=== PATIENT | female | born 1970 | race Caucasian/White ===

== ENCOUNTER 2024-02-07 12:23 | Observation (INO) | payer OTHER, SELFPAY ==
[2024-02-07] VITALS (8 sets, daily range): BP systolic 107–147; BP diastolic 86–92; PULSE 76–87; RESP 14–20; TEMP 36.4–36.7; O2SAT 94–98
--- NOTE | ~2024-02-07 | XR_ITS ---
EXAMINATION: XR chest 1V portable DATE: 02/07/2024 15:26 INDICATION: PICC line placement TECHNIQUE: BULGARIAN AP and BULGARIAN images of the chest were obtained. COMPARISON: None FINDINGS: Left upper extremity peripherally inserted central venous catheter (PICC) tip at the high right atri um. Linear band of discoid atelectasis/scarring in the lateral right midlung zone. Minimal discoid atelec tasis at the left costophrenic angle. No other airspace opacities, pulmonary edema, pleural effusion or pneumothorax. Thin branching embolized methyl methacrylate scattered within a few bronchi in lungs with right-sided perihilar predominance. This arises from a vertebroplasty, likely at L1 with associ ated methylmethacrylate extending along the adjacent right paraspinal vein. Associated instrumented p osterior spinal fusion with bilateral vertical arcenio and pedicle screw fixations beginning the midthora cic spine extending into the lumbar spine and beyond the inferior margin of the [id number]. There is also a likely corpectomy with interbody device at the lower thoracic spine. Heart size is normal. IMPRESSION: 1. Left upper extremity PICC line tip at the high right atrium. 2. Discoid atelectasis in the right mid and left lower lung zones. No other acute cardiopulmonary dis ease. 3. Scattered bilateral pulmonary arterial embolus methylmethacrylate related to prior vertebroplasty likely at L1 with chronic postoperative changes in the thoracic and upper lumbar spine as detailed ab ove. Correlate with neurosurgical history. Reviewed, dictated and finalized at location A. IMPRESSION: 1. Left upper extremity PICC line tip at the high right atrium. 2. Discoid atelectasis in the right mid and left lower lung zones. No other acu te cardiopulmonary disease. 3. Scattered bilateral pulmonary arterial embolus methylmethacrylate related to prior vertebroplasty likely at L1 with chronic postoperative changes in the th oracic and upper lumbar spine as detailed above. Correlate with neurosurgical h istory.
[2024-02-07] MEDS: methADONE HCL (*CRX) 10 MG TABLET 100 MG PO (15:05)
--- NOTE | 2024-02-07 15:16 | ED_ITS ---
HPI - General Adult General Chief complaint: Unspecified <YOHANA Roth Last Filed: 02/07/24 18:57> Stated complaint: pain <YOHANA Roth Last Filed: 02/07/24 18:57> Time Seen by Provider: 02/07/24 14:11 <YOHANA Roth Last Filed: 02/07/24 18:57> Source: patient <YOHANA Roth Last Filed: 02/07/24 18:57> Mode of arrival: EMS <YOHANA Roth Last Filed: 02/07/24 18:57> Limitations: no limitations <YOHANA Roth Last Filed: 02/07/24 18:57> History of Present Illness HPI narrative: This is a 53-year-old female that presents to the emergency department for further treatment of decubitus ulcer infection. Reportedly patient had been hospitalized at [facility] for this. She was discharged on 2 antibiotics for treatment of infection of her wounds. The nursing facility that she was discharged to does not have these antibiotics so they sent her to the ER for further management. Patient also reports she has not been given her chronic pain medication. Reports she takes methadone daily. She has no other current complaints. <YOHANA Roth Last Filed: 02/07/24 18:57> Related Data Allergies/adverse reactions: Allergies Allergy/AdvReac Type Severity Reaction Status Date / Time quinine Allergy Rash Verified 02/07/24 12:34 <YOHANA Roth Last Filed: 02/07/24 18:57> Review of Systems Review of Systems: CONSTITUTIONAL: Denies fever GASTROINTESTINAL: Denies vomiting MUSCULOSKELETAL: Reports back pain, joint pain, and myalgia. <YOHANA Roth Last Filed: 02/07/24 18:57> All systems reviewed & are unremarkable except as noted in HPI and below <YOHANA Roth Last Filed: 02/07/24 18:57> [facility]LY [facility] Past Medical History Medical History: Medical History (Updated 02/07/24 @ 18:42 by Pamela Teresa PA-C) History of COPD History of hyperlipidemia History of hypertension History of seizure disorder Paraplegia <Pamela Teresa PA-C - Last Filed: 02/07/24 18:57> Social History Social History: Social History (Updated 02/07/24 @ 15:21 by Pamela Teresa PA-C) Smoking status: Current some day smoker Substance use: former <Pamela Teresa PA-C - Last Filed: 02/07/24 18:57> Exam Narrative: GENERAL: Chronically ill-appearing, well-nourished, and in no acute distress. HEAD: Normocephalic, atraumatic. EYES: EOMI. ENT: Nares clear, no rhinorrhea or epistaxis. Mucous membranes moist. Oropharynx without tonsillar hypertrophy exudate or other lesions. CHEST: Clear to auscultation. No respiratory distress. No wheezes rales or rhonchi HEART: Regular rate and rhythm. No murmur heard. Normal peripheral pulses. ABDOMEN: Soft, nontender, nondistended, normal active bowel sounds. BACK: Stage 2 sacral decubitus ulcer present on the buttock bilaterally with serosanguineous drainage and moderate surrounding redness EXTREMITIES: Normal range of motion, except decreased active ROM in the lower extremities. No edema. SKIN: Warm, dry, no rash. NEURO: Alert and oriented x3. Paraplegic PSYCH: Normal mood and affect <Pamela Teresa PA-C - Last Filed: 02/07/24 18:57> Course Course Emergency Course: Patient updated on plan of care <Pamela Teresa PA-C - Last Filed: 02/07/24 18:57> DEBT RECOVERY OFFICER/PA Physician Supervision For this patient encounter, I reviewed the DEBT RECOVERY OFFICER or PA documentation, treatment plan, and medical decision making; and I had [id number] time with this patient. <Gordon Mortensen MD - Last Filed: 02/07/24 19:18> Consultations Consultation #1: Spoke with hospitalist about patient and workup who accepts admission <Pamela Teresa PA-C - Last Filed: 02/07/24 18:57> Date: 02/07/24 <Pamela Teresa PA-C - Last Filed: 02/07/24 18:57> Consultation #2: Spoke with care coordination about patient and workup. Will need to get in touch with facility on Friday when branch service representative is present to sort out if she will be able to get the correct antibiotics <Pamela Teresa PA-C - Last Filed: 02/07/24 18:57> Date: 02/07/24 <YOHANA Roth Last Filed: 02/07/24 18:57> Consultation #3: Infectious disease pharmacist consulted and will put in recommendations for antibiotics <Pamela Teresa PA-C - Last Filed: 02/07/24 18:57> Date: 02/07/24 <YOHANA Roth Last Filed: 02/07/24 18:57> Vital Signs Vital signs: Vital Signs Temperature 97.6 F 02/07/24 12:24 Pulse Rate 84 02/07/24 12:24 Respiratory Rate 20 02/07/24 12:24 Blood Pressure 124/87 02/07/24 12:24 Pulse Oximetry 94 02/07/24 12:24 Oxygen Delivery Room Air 02/07/24 12:24 Temperature 97.6 F 02/07/24 12:24 Pulse Rate 87 02/07/24 18:27 Respiratory Rate 20 02/07/24 18:27 Blood Pressure 107/86 02/07/24 18:27 Pulse Oximetry 94 02/07/24 18:27 Oxygen Delivery Room Air 02/07/24 12:24 <Pamela Teresa PA-C - Last Filed: 02/07/24 18:57> Vital Signs Temperature 97.6 F 02/07/24 12:24 Pulse Rate 84 02/07/24 12:24 Respiratory Rate 20 02/07/24 12:24 Blood Pressure 124/87 02/07/24 12:24 Pulse Oximetry 94 02/07/24 12:24 Oxygen Delivery Room Air 02/07/24 12:24 Temperature 97.6 F 02/07/24 12:24 Pulse Rate 87 02/07/24 18:27 Respiratory Rate 20 02/07/24 18:27 Blood Pressure 107/86 02/07/24 18:27 Pulse Oximetry 94 02/07/24 18:27 Oxygen Delivery Room Air 02/07/24 12:24 <Gordon Mortensen MD - Last Filed: 02/07/24 19:18> Medical Decision Making MDM Narrative Medical decision making narrative: Patient presents to the ER after being discharged from [facility] to nursing facility last night. They were unable to get her IV antibiotics so sent her to the ER. Patient is supposed to be on Cefiderocol 2g q 8 hours for 1 week. Eravacycline 92mg q 12 hours for 1 week. Patient is afebrile and nontoxic appearing. Her vitals are stable. CBC and metabolic panel without concerning findings. Infectious disease pharmacist consulted and will put in recommendations for antibiotics. Spoke with care coordination about patient and workup. Will need to get in touch with facility on Friday when branch service representative is present to sort out if she will be able to get the correct antibiotics there. Spoke with hospitalist about patient and workup who accepts admission for further management <Pamela Teresa PA-C - Last Filed: 02/07/24 18:57> Vital Signs Vital Signs: Vital Signs Temperature 97.6 F 02/07/24 12:24 Pulse Rate 84 02/07/24 12:24 Respiratory Rate 20 02/07/24 12:24 Blood Pressure 124/87 02/07/24 12:24 Pulse Oximetry 94 02/07/24 12:24 Oxygen Delivery Room Air 02/07/24 12:24 Temperature 97.6 F 02/07/24 12:24 Pulse Rate 87 02/07/24 18:27 Respiratory Rate 20 02/07/24 18:27 Blood Pressure 107/86 02/07/24 18:27 Pulse Oximetry 94 02/07/24 18:27 Oxygen Delivery Room Air 02/07/24 12:24 <Pamela Teresa PA-C - Last Filed: 02/07/24 18:57> Vital Signs Temperature 97.6 F 02/07/24 12:24 Pulse Rate 84 02/07/24 12:24 Respiratory Rate 20 02/07/24 12:24 Blood Pressure 124/87 02/07/24 12:24 Pulse Oximetry 94 02/07/24 12:24 Oxygen Delivery Room Air 02/07/24 12:24 Temperature 97.6 F 02/07/24 12:24 Pulse Rate 87 02/07/24 18:27 Respiratory Rate 20 02/07/24 18:27 Blood Pressure 107/86 02/07/24 18:27 Pulse Oximetry 94 02/07/24 18:27 Oxygen Delivery Room Air 02/07/24 12:24 <Gordon Mortensen MD - Last Filed: 02/07/24 19:18> Lab Data Lab results reviewed: Yes I reviewed the patient's lab results. <Pamela Teresa PA-C - Last Filed: 02/07/24 18:57> Result diagrams: 02/07/24 16:21 02/07/24 16:21 <Pamela Teresa PA-C - Last Filed: 02/07/24 18:57> Labs: Lab Results 02/07/24 Range/Units 16:21 WBC 7.0 (4.5-10.0) K/mm3 RBC 5.38 (4.2-5.4) M/mm3 Hgb 12.7 (12.0-15.0) g/dL Hct 42.8 (37.0-47.0) % MCV 79.6 L (80-100) fl MCH 23.6 L (26-34) pg MCHC 29.7 L (32-36) g/dl RDW 19.2 H (11.5-14.5) % Plt Count 318 (150-375) k/mm3 MPV 9.3 (7.4-10.4) fl Immature Gran % (Auto) 0.3 (0-0.5) % Neut % (Auto) 55.2 (45.5-73.1) % Lymph % (Auto) 35.5 (18.3-44.2) % [place] % (Auto) 5.4 (2.6-8.5) % Eos % (Auto) 2.0 (0-4.4) % Baso % (Auto) 1.6 H (0.2-1.2) % Lymph # (Auto) 2.48 (0.9-3.2) K/mm3 [place] # (Auto) 0.4 (0.1-0.6) K/mm3 Eos # (Auto) 0.1 (0-0.3) K/mm3 Baso # (Auto) 0.1 (0.0-0.1) K/mm3 Abs Immat Gran (auto) 0.02 (0.00-0.031) K/mm3 Absolute Neuts (auto) 3.9 (1.3-6.7) K/mm3 Absolute Nucleated RBC 0.000 (0.0-0.012) K/mm3 Nucleated RBC % 0.0 (0.0-0.2) % Platelet Estimate Adequate (Adequate) Hypochromasia 1+ Anisocytosis 2+ Microcytosis 1+ (NORMAL) Schistocytes None seen Sodium 136 L (137-145) mmol/L Potassium 4.1 (3.4-5.0) mmol/L Chloride 97 L (98-107) mmol/L Carbon Dioxide 32 H (22-30) mmol/L Anion Gap 7 (4-12) mmol/L BUN 38 H (7-17) mg/dL Creatinine 0.80 (0.7-1.0) mg/dL Estim Creat Clear Calc 69 ml/min Estimated GFR > 60 (59 - ) Glucose 161 H (65-110) mg/dL Calcium 9.1 (8.4-10.2) mg/dL Total Bilirubin 0.3 (0.2-1.3) mg/dL AST 27 (14-36) U/L ALT 11 (6-35) U/L Alkaline Phosphatase 151 H (38-126) U/L Total Protein 7.0 (6.3-8.2) g/dL Albumin 3.2 L (3.5-5.1) g/dL <Pamela Teresa PA-C - Last Filed: 02/07/24 18:57> Lab Results 02/07/24 Range/Units 16:21 WBC 7.0 (4.5-10.0) K/mm3 RBC 5.38 (4.2-5.4) M/mm3 Hgb 12.7 (12.0-15.0) g/dL Hct 42.8 (37.0-47.0) % MCV 79.6 L (80-100) fl MCH 23.6 L (26-34) pg MCHC 29.7 L (32-36) g/dl RDW 19.2 H (11.5-14.5) % Plt Count 318 (150-375) k/mm3 MPV 9.3 (7.4-10.4) fl Immature Gran % (Auto) 0.3 (0-0.5) % Neut % (Auto) 55.2 (45.5-73.1) % Lymph % (Auto) 35.5 (18.3-44.2) % [place] % (Auto) 5.4 (2.6-8.5) % Eos % (Auto) 2.0 (0-4.4) % Baso % (Auto) 1.6 H (0.2-1.2) % Lymph # (Auto) 2.48 (0.9-3.2) K/mm3 [place] # (Auto) 0.4 (0.1-0.6) K/mm3 Eos # (Auto) 0.1 (0-0.3) K/mm3 Baso # (Auto) 0.1 (0.0-0.1) K/mm3 Abs Immat Gran (auto) 0.02 (0.00-0.031) K/mm3 Absolute Neuts (auto) 3.9 (1.3-6.7) K/mm3 Absolute Nucleated RBC 0.000 (0.0-0.012) K/mm3 Nucleated RBC % 0.0 (0.0-0.2) % Platelet Estimate Adequate (Adequate) Hypochromasia 1+ Anisocytosis 2+ Microcytosis 1+ (NORMAL) Schistocytes None seen Sodium 136 L (137-145) mmol/L Potassium 4.1 (3.4-5.0) mmol/L Chloride 97 L (98-107) mmol/L Carbon Dioxide 32 H (22-30) mmol/L Anion Gap 7 (4-12) mmol/L BUN 38 H (7-17) mg/dL Creatinine 0.80 (0.7-1.0) mg/dL Estim Creat Clear Calc 69 ml/min Estimated GFR > 60 (59 - ) Glucose 161 H (65-110) mg/dL Calcium 9.1 (8.4-10.2) mg/dL Total Bilirubin 0.3 (0.2-1.3) mg/dL AST 27 (14-36) U/L ALT 11 (6-35) U/L Alkaline Phosphatase 151 H (38-126) U/L Total Protein 7.0 (6.3-8.2) g/dL Albumin 3.2 L (3.5-5.1) g/dL <Gordon Mortensen MD - Last Filed: 02/07/24 19:18> Imaging Data Radiologist's impression: ITS Impressions Chest X-Ray 02/07/24 15:38 IMPRESSION: 1. Left upper extremity PICC line tip at the high right atrium. 2. Discoid atelectasis in the right mid and left lower lung zones. No other acute cardiopulmonary disease. 3. 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 Correlate with neurosurgical history. <Pamela Teresa PA-C - Last Filed: 02/07/24 18:57> Critical Care Time Critical Care Time Critical Care Time: No <Pamela Teresa PA-C - Last Filed: 02/07/24 18:57> Discharge Plan Discharge Clinical Impression: Decubitus ulcer Qualifiers: Pressure injury location: buttock Pressure injury stage: stage 2 Laterality: unspecified laterality Qualified Code(s): L89.302 - Pressure ulcer of unspecified buttock, stage 2 <Pamela Teresa PA-C - Last Filed: 02/07/24 18:57> Patient Disposition: Still a Patient <YOHANA Roth Last Filed: 02/07/24 18:57> Condition: Stable <YOHANA Roth Last Filed: 02/07/24 18:57>
--- NOTE | 2024-02-07 16:08 | PC.NURSE ---
Called [facility] to inquire about the fax they were going to send 1.5 hours ago. there was no answer. also no option to leave voicemail
[2024-02-07 16:32] LABS: Basophils Absolute Auto 0.1 K/mm3 (0.0-0.1); Basophils Percent Auto 1.6 % (0.2-1.2); Eosinophils Absolute Auto 0.1 K/mm3 (0-0.3); Hematocrit 42.8 % (37.0-47.0); Hemoglobin 12.7 g/dL (12.0-15.0); Immature Granulocyte Absolute 0.02 K/mm3 (0.00-0.031); Immature Granulocyte Percent A 0.3 % (0-0.5); Lymphocytes Absolute Auto 2.48 K/mm3 (0.9-3.2); Lymphocytes Percent Auto 35.5 % (18.3-44.2); Mean Corpuscular HGB Conc 29.7 g/dl (32-36); Mean Corpuscular Hemoglobin 23.6 pg (26-34); Mean Corpuscular Volume 79.6 fl (80-100); Mean Platelet Volume 9.3 fl (7.4-10.4); Monocytes Absolute Auto 0.4 K/mm3 (0.1-0.6); Monocytes Percent Auto 5.4 % (2.6-8.5); Neutrophils Absolute Auto 3.9 K/mm3 (1.3-6.7); Neutrophils Percent Auto 55.2 % (45.5-73.1); Platelet Count Result 318 k/mm3 (150-375); Red Blood Count 5.38 M/mm3 (4.2-5.4); Red Cell Distribution Width 19.2 % (11.5-14.5)
[2024-02-07 16:48] LABS: Alanine Aminotransferase 11 U/L (6-35); Albumin Level 3.2 g/dL (3.5-5.1); Alkaline Phosphatase 151 U/L (38-126); Anion Gap 7 mmol/L (4-12); Aspartate Amino Transferase 27 U/L (14-36); Bilirubin,Total 0.3 mg/dL (0.2-1.3); Blood Urea Nitrogen 38 mg/dL (7-17); Calcium 9.1 mg/dL (8.4-10.2); Carbon Dioxide 32 mmol/L (22-30); Chloride 97 mmol/L (98-107); Estimated CRCL calculation 69 ml/min; Estimated Glomerular Filt Rate > 60; Glucose 161 mg/dL (65-110); Potassium 4.1 mmol/L (3.4-5.0); Sodium 136 mmol/L (137-145)
--- NOTE | 2024-02-07 17:06 | PC.NURSE ---
called [facility] about paperwork they were going to fax. pt's nurse at the facility states she has tried to fax it twice.
[2024-02-07 17:08] LABS: Platelet Estimate Adequate (Adequate); Schistocytes None Seen
[2024-02-07 17:09] LABS: Hypochromasia 1+
[2024-02-07 17:10] LABS: Anisocytosis 2+; Microcytosis 1+ (NORMAL)
--- NOTE | 2024-02-07 17:33 | PC.NURSE ---
Contacted supervisor ski production at [facility] in [facility] for information regarding patients recent stay. Talked to supervisor ski production Sahra for fax number ([phone])
[2024-02-07 19:42] LABS: Glucose Point of Care 107 mg/dl (65-105)
--- NOTE | 2024-02-07 21:11 | PM.IMHP ---
H&P: HPI History of Present Illness Date/Time: 02/07/24 21:11 Chief Complaint: Sent from residential because they do not have the patient's antibiotics Narrative: 53-year-old female with past medical history of heroin abuse, pulmonary embolism of material used in vertebroplasty, paraplegia, COPD, essential hypertension and chronic decubitus ulcers who presented to the ER from [facility] via EMS due to residential not having the patient's methadone or IV antibiotics per available for administration. The patient had just been released from [facility] in [place] on the evening of the after being treated for sepsis due to infected decubitus ulcers, bacteremia and suspected osteomyelitis. She also had a GI chronic indwelling Yi catheter due to neurogenic bladder.. She was discharged on Cefiderocol 2g q 8 hours for 1 week. Eravacycline 92mg q 12 hours for 1 week. She also receives methadone 100 mg p.o. daily due to a distant history of heroin abuse. Evidently the residential did not have a they antibiotics available and did not have methadone. Subsequently patient did not get her morning methadone dose of 100 mg and was having pain all over that was an 8/10 in intensity. Source of information is from discharge memory from [facility], EMS report and residential paperwork as well as ER provider report. The patient is alert orient x1. Patient's baseline mental status is unknown. She does wake up and tell me that she is paraplegic from a surgeon messing up her back. It is unclear how long she has been paralyzed her when the surgery occurred. He will tell me that she smokes and states that she has not been smoking currently but she is frustrated because she can not smoke. She cannot tell me when she last smoked or how long she is in the hospital. She does not tell me when she last used heroin but records states that it is been at least 8 years. She denies history of alcohol use. The patient falls asleep multiple times during my evaluation but will follow simple commands. Only time she provides information without prompting his when I was touching her lower extremities at which time she yelled at me to stop. Explained to her that I was the physician and was trying to evaluate her in the patient yelled at me and told me there was no way that I was a doctor and I needed to leave her alone. Patient was admitted at [facility] 01/24/2024 through 02/06/2024. Her left buttock wound cultures grew out strep B, Pseudomonas aeruginosa, Enterococcus faecium and Acinetobacter cultures from 01/24/2024 demonstrated Clostridium butyricum. Urine culture grew out Acinetobacter. She had a PICC line placed in the left upper extremity. Her A1c during hospitalization was 5.6%. Review of Systems Review of Systems: ROS unobtainable: Yes unobtainable due to mental status PMFSH Past Medical History Medical History (Updated 02/07/24 @ 23:45 by Briseida Sanchez DO) Chronic anticoagulation Chronic hypoxic respiratory failure, on home oxygen therapy On 2 L nasal cannula Chronic indwelling Yi catheter COPD (chronic obstructive pulmonary disease) Diabetic peripheral neuropathy Essential hypertension History of heroin abuse Hyperlipidemia Hypomagnesemia Insomnia Iron deficiency anemia Neurogenic bladder Obesity (BMI 30.0-34.9) Obstructive sleep apnea Paraplegia Following spinal surgery Pulmonary embolism Pulmonary embolism due to thrombus and due to vertebroplasty material Seizure disorder TIA (transient ischemic attack) Type 2 diabetes mellitus Now diet controlled after weight loss Venous stasis dermatitis of both lower extremities Vertebral osteomyelitis Patient is post be on chronic antibiotic therapy with doxycycline but is noncompliant Surgical History Surgical History (Updated 02/07/24 @ 23:20 by Briseida Sanchez DO) History of resection of rib Right 1st and 2nd rib History of spinal surgery Posterior Bilateral vertical arcenio and pedicle screw fixation midthoracic extending through lumbar, with evidence of corpectomy of thoracic spine History of vertebroplasty T8, T10, L1 Family History Family History (Updated 02/07/24 @ 23:40 by Briseida Sanchez DO) Other Unknown family medical history Social History Social History (Updated 02/07/24 @ 23:42 by Briseida Sanchez DO) Social History: From what I can tell from external records patient still smokes when she acutely hospitalized. She has smoked up to 2 packs per day since a young age. She has a history of heroin abuse is reported in in remission for approximately 8 years. She denies history of alcohol use. She reports that she has 2 daughters. Code status: Full code Surrogate decision maker: Margaret (daughter) Smoking packs per day: 2 Smoking cigarettes per day: 40.0 Years smoked: 40 Smoking pack-years: 80.00 Smoking status: Current every day smoker Tobacco type: cigarettes Substance use: former Substance use type: heroin and opiates Other substance usage details: Quit in 2016 Meds Home Medications and Allergies Home Medications Medication Instructions Recorded Confirmed Type acetaminophen 325 mg tablet 650 mg PO DAILY 02/07/24 02/07/24 History albuterol sulfate 90 mcg/actuation 2 puff inhalation Q6H 02/07/24 02/07/24 History aerosol inhaler amlodipine 10 mg tablet 10 mg PO DAILY 02/07/24 02/07/24 History apixaban 5 mg tablet (Eliquis) 5 mg PO BID 02/07/24 02/07/24 History atorvastatin 40 mg tablet 40 mg PO QHS 02/07/24 02/07/24 History citalopram 40 mg tablet 40 mg PO DAILY 02/07/24 02/07/24 History cyclobenzaprine 5 mg tablet 5 mg PO BID PRN Muscle Spasm 02/07/24 02/07/24 History doxycycline hyclate 100 mg tablet 100 mg PO DAILY 02/07/24 02/07/24 History ferrous sulfate 325 mg (65 mg 324 mg PO DAILY 02/07/24 02/07/24 History iron) tablet (FeroSul) fluticasone propionate 230 2 puff inhalation BID 02/07/24 02/07/24 History mcg-salmeterol 21 mcg/actuation HFA inhaler (Advair HFA) furosemide 40 mg tablet 40 mg PO DAILY 02/07/24 02/07/24 History levetiracetam 1,000 mg tablet 1,000 mg PO BID 02/07/24 02/07/24 History methadone 40 mg soluble tablet 100 mg PO DAILY 02/07/24 02/07/24 History methocarbamol 500 mg tablet 500 mg PO QID 02/07/24 02/07/24 History Allergies Allergy/AdvReac Type Severity Reaction Status Date / Time quinine Allergy Rash Verified 02/07/24 12:34 Vital Signs Vital Signs - 24 hr 02/07/24 12:24 02/07/24 12:34 02/07/24 12:37 Temperature 97.6 F Pulse Rate 84 77 Respiratory Rate 20 16 Blood Pressure 124/87 Pulse Oximetry 94 94 Oxygen Delivery Room Air 02/07/24 15:07 02/07/24 17:46 02/07/24 18:27 Temperature Pulse Rate 79 78 87 Respiratory Rate 20 16 20 Blood Pressure 147/92 H 123/86 107/86 Pulse Oximetry 95 98 94 Oxygen Delivery Exam Narrative: Weight 77.7 kg BMI 31.3 Const: Other: Chronically ill-appearing, appears much older than stated age HENMT: Other: Mucous membranes are dry, crowded posterior oropharynx, upper dentures in place, edentulous in lower jaw, head is normocephalic atraumatic, nasal cannula in place Eyes: Other: Pupils are equal and reactive, no scleral icterus, no conjunctival pallor Neck: Other: No lymphadenopathy, supple, no JVD Resp: Other: Clear to auscultation bilaterally, no increased work of breathing Cardio: Other: Regular rate, regular rhythm, 2+ bilateral radial and pedal GI: Other: Distended, normoactive bowel sounds, soft Urinary Catheter: Urinary Catheter: patent and draining, urine clear and urine dark Skin: Other: Decubitus ulcers on the coccyx and but we see nursing documentation for details, wound bases appear clean, o'clock noted, otherwise serous sanguinous drainage but no more than expected Neuro: Other: Patient is somnolent but arouses easily to verbal and tactile stimuli, moves bilateral upper extremities equally, cranial nerves appear to be grossly intact however patient was not compliant with evaluation of extraocular movements, pupils were equal and reactive, no obvious facial asymmetry, patient has pressure in paresthesia type sensation to lower extremities but is unable to move lower extremities due to paraplegia Extrem: Other: Intermittent fasciculations of the quadriceps consistent with myotonic active Psych: Attitude: Avoids eye contact (attititude/behavior) and Refuses to answer (attititude/behavior) Other: Irritable, uncooperative, flat affect, poor judgment and insight H&P: Results Labs Labs: Laboratory Tests 02/07/24 16:21 02/07/24 16:21 02/07/24 02/07/24 16:21 19:39 WBC 7.0 RBC 5.38 Hgb 12.7 Hct 42.8 MCV 79.6 L MCH 23.6 L MCHC 29.7 L RDW 19.2 H Plt Count 318 MPV 9.3 Immature Gran % (Auto) 0.3 Neut % (Auto) 55.2 Lymph % (Auto) 35.5 Miller % (Auto) 5.4 Eos % (Auto) 2.0 Baso % (Auto) 1.6 H Lymph # (Auto) 2.48 Miller # (Auto) 0.4 Eos # (Auto) 0.1 Baso # (Auto) 0.1 Abs Immat Gran (auto) 0.02 Absolute Neuts (auto) 3.9 Absolute Nucleated RBC 0.000 Nucleated RBC % 0.0 Platelet Estimate Adequate Hypochromasia 1+ Anisocytosis 2+ Microcytosis 1+ Schistocytes None seen Sodium 136 L Potassium 4.1 Chloride 97 L Carbon Dioxide 32 H Anion Gap 7 BUN 38 H Creatinine 0.80 Estim Creat Clear Calc 69 Estimated GFR > 60 Glucose 161 H POC Capillary Glucose 107 H Calcium 9.1 Total Bilirubin 0.3 AST 27 ALT 11 Alkaline Phosphatase 151 H Total Protein 7.0 Albumin 3.2 L Impressions Chest X-Ray 02/07/24 15:38 IMPRESSION: 1. Left upper extremity PICC line tip at the high right atrium. 2. Discoid atelectasis in the right mid and left lower lung zones. No other acute cardiopulmonary disease. 3. 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 Correlate with neurosurgical history. Assessment and Plan Assessment and plan (1) Decubitus ulcer: Qualifiers: Laterality: unspecified laterality Pressure injury location: buttock Pressure injury stage: stage 2 Qualified Code(s): L89.302 - Pressure ulcer of unspecified buttock, stage 2 Code(s): L89.90 - Pressure ulcer of unspecified site, unspecified stage Status: Acute (2) History of heroin abuse: Code(s): F11.11 - Opioid abuse, in remission Status: Acute (3) COPD (chronic obstructive pulmonary disease): Qualifiers: COPD type: unspecified COPD Qualified Code(s): J44.9 - Chronic obstructive pulmonary disease, unspecified Code(s): J44.9 - Chronic obstructive pulmonary disease, unspecified Status: Acute (4) Seizure disorder: Code(s): G40.909 - Epilepsy, unspecified, not intractable, without status epilepticus Status: Acute (5) Chronic anticoagulation: Code(s): Z79.01 - senior care (current) use of anticoagulants Status: Acute (6) Chronic indwelling Yi catheter: Code(s): Z97.8 - Presence of other specified devices Status: Acute Plan Patient was brought in due to residential being unable to obtain the patient's prescribed IV antibiotic therapy. Patient is post to complete a 7 day course of the above-mentioned antibiotics and be on doxycycline indefinitely. For whatever reason residential did not verify that they could obtain the patient's antibiotics on arrival to the facility and even though prescription had been provided for the patient's methadone the residential was unable to obtain the methadone for the patient to get her dose today. Subsequently patient has been admitted and infectious disease pharmacist has been consulted as to recommendations for antibiotic therapy. ER was able to obtain the records from [facility] and infectious disease pharmacist recommends patient be on Azactam, tigecycline and ceftazidime/avibactam. Care coordination has been consulted to help facilitate coordination of antibiotics with residential. Patient does have COPD but is not in acute exacerbation will resume medications. Will resume patient's home seizure medications as well. Patient does have a history of essential hypertension but blood pressures appear within goal range on home medications will continue home Norvasc. Remainder of patient's home medications have been reviewed and reconciled as appropriate. Patient has been admitted as observation status. Quality VTE Prophylaxis VTE prophylaxis: pharmacologic ordered (Continue home Eliquis) Hospitalist [facility] Medication Reconciliation I have utilized all available resources to obtain, update and review the patients current medications (includes all prescriptions, OTC, herbals, cannabis, and nutritional supplements).: Yes
[2024-02-07] MEDS: AZTREONAM 2 GM in SODIUM CHLORIDE 0.9% IV 100 ML 200 ML IVPB (22:19)
[2024-02-07] MEDS: CENTRAL LINE FLUSH 10 ML IV PUSH (23:07)
[2024-02-07] MEDS: CEFTAZIDIME/AVIBACTAM 2.5 GM in SODIUM CHLORIDE 0.9% IV 100 ML IVPB (23:07)
[2024-02-08] VITALS (10 sets, daily range): BP systolic 125–134; BP diastolic 75–83; PULSE 82–90; RESP 18–20; TEMP 35.9–36.5; O2SAT 93–98
[2024-02-08] MEDS: ALBUTEROL SULFATE (*SP) AEROSOL 1 PUFF 2 PUFF INHALATION ×4 (02:30→20:41)
[2024-02-08] MEDS: CYCLOBENZAPRINE HCL 5 MG TABLET PO ×2 (03:37→08:47)
[2024-02-08] MEDS: TIGECYCLINE 100 MG in DEXTROSE 5% 100 ML IVPB ×2 (03:40→17:41)
[2024-02-08] MEDS: AZTREONAM 2 GM in SODIUM CHLORIDE 0.9% IV 100 ML 200 ML IVPB ×3 (05:06→21:37)
[2024-02-08] MEDS: CENTRAL LINE FLUSH 10 ML IV PUSH ×3 (05:08→22:00)
[2024-02-08] MEDS: CEFTAZIDIME/AVIBACTAM 2.5 GM in SODIUM CHLORIDE 0.9% IV 100 ML IVPB ×3 (05:46→21:40)
--- NOTE | 2024-02-08 06:42 | PC.NURSE ---
On 02/08/24, the [employer], [florence ], provided care and [facility]. I have reviewed the [employer]'s documentation and agree with the findings.
[2024-02-08] MEDS: FLUTICASONE/SALMETEROL 230-21 MCG INHALER 1 PUFF 2 PUFF INHALATION ×2 (07:40→20:41)
[2024-02-08 07:47] LABS: Glucose Point of Care 101 mg/dl (65-105)
[2024-02-08] MEDS: methADONE HCL (*CRX) 10 MG TABLET 100 MG PO (08:47)
[2024-02-08] MEDS: FERROUS SULFATE 325 MG TABLET DR PO (08:47)
[2024-02-08] MEDS: DOXYCYCLINE HYCLATE 100 MG TABLET PO (08:47)
[2024-02-08] MEDS: CITALOPRAM HYDROBROMIDE 20 MG TABLET 40 MG PO (08:47)
[2024-02-08] MEDS: amLODIPine BESYLATE 10 MG TABLET PO (08:47)
[2024-02-08] MEDS: FUROSEMIDE 40 MG TABLET PO (08:47)
[2024-02-08] MEDS: levETIRAcetam 500 MG TABLET 1000 MG PO ×2 (08:47→19:59)
[2024-02-08] MEDS: APIXABAN 5 MG TABLET PO ×2 (08:47→19:58)
[2024-02-08] MEDS: methocarbamoL 500 MG TABLET PO ×4 (08:55→20:05)
[2024-02-08 11:24] LABS: Glucose Point of Care 149 mg/dl (65-105)
--- NOTE | 2024-02-08 15:58 | PM.IMPN ---
Progress Note: A&P Assessment and Plan (1) Decubitus ulcer: Qualifiers: Laterality: unspecified laterality Pressure injury location: buttock Pressure injury stage: stage 2 Qualified Code(s): L89.302 - Pressure ulcer of unspecified buttock, stage 2 Code(s): L89.90 - Pressure ulcer of unspecified site, unspecified stage Status: Acute (2) History of heroin abuse: Code(s): F11.11 - Opioid abuse, in remission Status: Acute (3) COPD (chronic obstructive pulmonary disease): Qualifiers: COPD type: unspecified COPD Qualified Code(s): J44.9 - Chronic obstructive pulmonary disease, unspecified Code(s): J44.9 - Chronic obstructive pulmonary disease, unspecified Status: Acute (4) Seizure disorder: Code(s): G40.909 - Epilepsy, unspecified, not intractable, without status epilepticus Status: Acute (5) Chronic anticoagulation: Code(s): Z79.01 - exterminator helper termite (current) use of anticoagulants Status: Acute (6) Chronic indwelling Yi catheter: Code(s): Z97.8 - Presence of other specified devices Status: Acute Plan Patient was brought in due to long-term being unable to obtain the patient's prescribed IV antibiotic therapy. Patient is post to complete a 7 day course of the above-mentioned antibiotics and be on doxycycline indefinitely. For whatever reason long-term did not verify that they could obtain the patient's antibiotics on arrival to the facility and even though prescription had been provided for the patient's methadone the long-term was unable to obtain the methadone for the patient to get her dose today. Subsequently patient has been admitted and infectious disease pharmacist has been consulted as to recommendations for antibiotic therapy. ER was able to obtain the records from [facility] and infectious disease pharmacist recommends patient be on Azactam, tigecycline and ceftazidime/avibactam. Care coordination has been consulted to help facilitate coordination of antibiotics with long-term. Patient does have COPD but is not in acute exacerbation will resume medications. Will resume patient's home seizure medications as well. Patient does have a history of essential hypertension but blood pressures appear within goal range on home medications will continue home Norvasc. Remainder of patient's home medications have been reviewed and reconciled as appropriate. 02/08/24 - Abx resumed here. Methadone resumed here. Awaiting placement. Continue home meds. Discharge when IV medications arranged. Repeat labs in the morning DVT prophylaxis - eliquis Code status - full Subjective Date/time seen: 02/08/24 15:58 Interval history: 53yo female with hx of heroin abuse, PE of material used in vertebroplasty, paraplegia, COPD, HTN and chronic decubitus ulcers who presented to the ER from [facility] via EMS due to long-term not having the patient's methadone or IV antibiotics per available for administration. No problems overnight. She slept well. No CP or SOB. No n/v. No cough Exam Narrative: AF 96.7 125/75 84 20 93% 1L Gen - NARD lying semi-recumbent in bed Chest - distant BS anteriorly and in flanks. CV - RRR S1/S2 Abd - Soft, firm central area that is mildly tender and tympanitic. +BS - Yi secured draining clear yellow urine Ext - No pedal edema Neuro - Alert and appropriate. Paraplegia Psych - Nml mood and affect Skin - Warm and dry. chronic venous stasis skin changed bilateral LE Objective Data Vital Signs Vital Signs: Vital Signs - 24 hr 02/07/24 17:46 02/07/24 18:27 02/07/24 21:15 Temperature 98.0 F Pulse Rate 78 87 76 Respiratory Rate 16 20 14 Blood Pressure 123/86 107/86 119/88 Pulse Oximetry 98 94 98 Oxygen Delivery Oxygen Flow Rate Fraction of Inspired Oxygen 02/07/24 20:00 02/08/24 02:20 02/08/24 05:08 Temperature 97.4 F L Pulse Rate 82 Respiratory Rate 18 Blood Pressure 134/80 Pulse Oximetry 98 98 98 Oxygen Delivery Nasal Cannula Nasal Cannula Oxygen Flow Rate 2 2.5 Fraction of Inspired Oxygen 02/08/24 07:41 02/08/24 07:41 02/08/24 13:39 Temperature 96.7 F L Pulse Rate 90 90 89 Respiratory Rate 20 20 18 Blood Pressure 125/75 Pulse Oximetry 95 93 Oxygen Delivery Nasal Cannula Oxygen Flow Rate 1 Fraction of Inspired Oxygen 02/08/24 14:07 Temperature Pulse Rate 84 Respiratory Rate 20 Blood Pressure Pulse Oximetry Oxygen Delivery Oxygen Flow Rate Fraction of Inspired Oxygen Intake/Output Intake/Output: Intake & Output 02/05/24 02/06/24 02/07/24 02/08/24 23:59 23:59 23:59 23:59 Intake Total 350 672 Output Total 7930 Balance 350 -0498 Meds/Results Medications: Active Medications Generic Name Dose Route Start Last Admin Trade Name Frematthew PRN Reason Stop Dose Admin Albuterol 2 puff 02/07/24 02:00 02/08/24 14:06 Albuterol Sulfate (*Sp) Aerosol 1 Puff INHALATION 2 puff Q6HRT MARANDA Administration Amlodipine Besylate 10 mg 02/08/24 09:00 02/08/24 08:47 Amlodipine Besylate 10 Mg Tablet PO 10 mg DAILY MARANDA Administration Apixaban 5 mg 02/08/24 09:00 02/08/24 08:47 Apixaban 5 Mg Tablet PO 5 mg Q12HR MARANDA Administration Atorvastatin Calcium 40 mg 02/08/24 21:00 Atorvastatin 40 Mg Tablet PO QHS MARANDA Citalopram Hydrobromide 40 mg 02/08/24 09:00 02/08/24 08:47 Citalopram Hydrobromide 20 Mg Tablet PO 40 mg DAILY MARANDA Administration Cyclobenzaprine HCl 5 mg 02/07/24 21:36 02/08/24 08:47 Cyclobenzaprine Hcl 5 Mg Tablet PO 5 mg BID PRN Administration Muscle Spasm Doxycycline Hyclate 100 mg 02/08/24 09:00 02/08/24 08:47 Doxycycline Hyclate 100 Mg Tablet PO 100 mg DAILY MARANDA Administration Ferrous Sulfate 325 mg 02/08/24 09:00 02/08/24 08:47 Ferrous Sulfate [address] PO 03/09/24 08:59 325 mg DAILY MARANDA Administration Furosemide 40 mg 02/08/24 09:00 02/08/24 08:47 Furosemide 40 Mg Tablet PO 40 mg DAILY MARANDA Administration Tigecycline 100 mg/ Dextrose 100 mls @ 100 mls/hr 02/08/24 04:00 02/08/24 04:40 IVPB Infused Q12H MARANDA Infusion Aztreonam 2 gm/ Sodium 100 mls @ 200 mls/hr 02/08/24 06:00 02/08/24 14:56 Chloride IVPB 200 mls/hr Q8HR MARANDA Administration Ceftazidime/Avibactam 2.5 gm/ 112 mls @ 56 mls/hr 02/08/24 06:30 02/08/24 05:47 Sodium Chloride IVPB Not Given Q8H MARANDA Levetiracetam 1,000 mg 02/07/24 21:00 02/08/24 08:47 Levetiracetam 500 Mg Tablet PO 1,000 mg Q12HR MARANDA Administration Methadone HCl 100 mg 02/08/24 09:00 02/08/24 08:47 Methadone Hcl (*Crx) 10 Mg Tablet PO 03/09/24 08:59 100 mg DAILY MARANDA Administration Methocarbamol 500 mg 02/08/24 09:00 02/08/24 14:44 Methocarbamol 500 Mg Tablet PO 500 mg QID MARANDA Administration Fluticasone/Salmeterol 2 puff 02/08/24 08:00 02/08/24 07:40 Fluticasone/Salmeterol 230-21 Mcg Inhaler 1 Puff INHALATION 2 puff Q12HRT MARANDA Administration Sodium Chloride 10 ml 02/07/24 22:00 02/08/24 14:44 Central Line Flush IV PUSH 10 ml Q8HR MARANDA Administration Sodium Chloride 10 ml 02/07/24 15:14 Central Line Flush IV PUSH PRN PRN with TPN bag changes Sodium Chloride 20 ml 02/07/24 15:14 Central Line Flush IV PUSH PRN PRN after blood draws Radiology Results: ITS Impressions Chest X-Ray 02/07/24 15:38 IMPRESSION: 1. Left upper extremity PICC line tip at the high right atrium. 2. Discoid atelectasis in the right mid and left lower lung zones. No other acute cardiopulmonary disease. 3. 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 Correlate with neurosurgical history. Labs Labs: Laboratory Results - last 24 hr 02/07/24 02/07/24 02/08/24 16:21 19:39 07:27 WBC 7.0 RBC 5.38 Hgb 12.7 Hct 42.8 MCV 79.6 L MCH 23.6 L MCHC 29.7 L RDW 19.2 H Plt Count 318 MPV 9.3 Immature Gran % (Auto) 0.3 Neut % (Auto) 55.2 Lymph % (Auto) 35.5 Griggs % (Auto) 5.4 Eos % (Auto) 2.0 Baso % (Auto) 1.6 H Lymph # (Auto) 2.48 Gr[place]gs # (Auto) 0.4 Eos # (Auto) 0.1 Baso # (Auto) 0.1 Abs Immat Gran (auto) 0.02 Absolute Neuts (auto) 3.9 Absolute Nucleated RBC 0.000 Nucleated RBC % 0.0 Platelet Estimate Adequate Hypochromasia 1+ Anisocytosis 2+ Microcytosis 1+ Schistocytes None seen Sodium 136 L Potassium 4.1 Chloride 97 L Carbon Dioxide 32 H Anion Gap 7 BUN 38 H Creatinine 0.80 Estim Creat Clear Calc 69 Estimated GFR > 60 Glucose 161 H POC Capillary Glucose 107 H 101 Calcium 9.1 Total Bilirubin 0.3 AST 27 ALT 11 Alkaline Phosphatase 151 H Total Protein 7.0 Albumin 3.2 L 02/08/24 11:22 WBC RBC Hgb Hct MCV MCH MCHC RDW Plt Count MPV Immature Gran % (Auto) Neut % (Auto) Lymph % (Auto) Gr[place]gs % (Auto) Eos % (Auto) Baso % (Auto) Lymph # (Auto) Griggs # (Auto) Eos # (Auto) Baso # (Auto) Abs Immat Gran (auto) Absolute Neuts (auto) Absolute Nucleated RBC Nucleated RBC % Platelet Estimate Hypochromasia Anisocytosis Microcytosis Schistocytes Sodium Potassium Chloride Carbon Dioxide Anion Gap BUN Creatinine Estim Creat Clear Calc Estimated GFR Glucose POC Capillary Glucose 149 H Calcium Total Bilirubin AST ALT Alkaline Phosphatase Total Protein Albumin
[2024-02-08 16:50] LABS: Glucose Point of Care 76 mg/dl (65-105)
[2024-02-08] MEDS: ATORVASTATIN 40 MG TABLET PO (19:58)
[2024-02-08 20:06] LABS: Glucose Point of Care 114 mg/dl (65-105)
[2024-02-09] MEDS: TIGECYCLINE 100 MG in DEXTROSE 5% 100 ML IVPB (04:11)
[2024-02-09] MEDS: CENTRAL LINE FLUSH 10 ML IV PUSH (04:12)
[2024-02-09 04:22] LABS: Basophils Absolute Auto 0.1 K/mm3 (0.0-0.1); Basophils Percent Auto 1.4 % (0.2-1.2); Eosinophils Absolute Auto 0.1 K/mm3 (0-0.3); Eosinophils Percent Auto 1.5 % (0-4.4); Hematocrit 39.9 % (37.0-47.0); Hemoglobin 12.1 g/dL (12.0-15.0); Immature Granulocyte Absolute 0.02 K/mm3 (0.00-0.031); Immature Granulocyte Percent A 0.2 % (0-0.5); Lymphocytes Absolute Auto 2.43 K/mm3 (0.9-3.2); Lymphocytes Percent Auto 30.3 % (18.3-44.2); Mean Corpuscular HGB Conc 30.3 g/dl (32-36); Mean Corpuscular Hemoglobin 23.7 pg (26-34); Mean Corpuscular Volume 78.2 fl (80-100); Mean Platelet Volume 10.1 fl (7.4-10.4); Monocytes Absolute Auto 0.6 K/mm3 (0.1-0.6); Neutrophils Absolute Auto 4.8 K/mm3 (1.3-6.7); Neutrophils Percent Auto 59.6 % (45.5-73.1); Platelet Count Result 305 k/mm3 (150-375); Red Cell Distribution Width 19.3 % (11.5-14.5)
[2024-02-09 04:40] LABS: Alanine Aminotransferase 10 U/L (6-35); Alkaline Phosphatase 145 U/L (38-126); Anion Gap 7 mmol/L (4-12); Aspartate Amino Transferase 23 U/L (14-36); Bilirubin,Total 0.3 mg/dL (0.2-1.3); Blood Urea Nitrogen 49 mg/dL (7-17); Calcium 8.5 mg/dL (8.4-10.2); Carbon Dioxide 30 mmol/L (22-30); Chloride 97 mmol/L (98-107); Estimated CRCL calculation 78 ml/min; Estimated Glomerular Filt Rate > 60; Glucose 93 mg/dL (65-110); Magnesium 2.1 mg/dL (1.6-2.3); Phosphorus 4.4 mg/dL (2.5-4.5); Potassium 4.2 mmol/L (3.4-5.0); Sodium 134 mmol/L (137-145)
[2024-02-09] MEDS: AZTREONAM 2 GM in SODIUM CHLORIDE 0.9% IV 100 ML 200 ML IVPB (05:27)
[2024-02-09] MEDS: CEFTAZIDIME/AVIBACTAM 2.5 GM in SODIUM CHLORIDE 0.9% IV 100 ML IVPB (05:35)
[2024-02-09] MEDS: ACETAMINOPHEN 325 MG TABLET 650 MG PO (05:39)
[2024-02-09] MEDS: CYCLOBENZAPRINE HCL 5 MG TABLET PO (05:39)
[2024-02-09 05:49] VITALS: BP 127/77; PULSE 85; RESP 18; TEMP 36.4; O2SAT 100
--- NOTE | 2024-02-09 07:39 | PC.NURSE ---
I have reviewed the charting and in agreement of the findings. Will continue to monitor
[2024-02-09 07:41] LABS: Glucose Point of Care 84 mg/dl (65-105)
[2024-02-09] MEDS: APIXABAN 5 MG TABLET PO (08:29)
[2024-02-09] MEDS: FUROSEMIDE 40 MG TABLET PO (08:29)
[2024-02-09] MEDS: amLODIPine BESYLATE 10 MG TABLET PO (08:29)
[2024-02-09] MEDS: methADONE HCL (*CRX) 10 MG TABLET 100 MG PO (08:29)
[2024-02-09] MEDS: levETIRAcetam 500 MG TABLET 1000 MG PO (08:29)
[2024-02-09] MEDS: methocarbamoL 500 MG TABLET PO (08:29)
[2024-02-09] MEDS: FERROUS SULFATE 325 MG TABLET DR PO (08:30)
[2024-02-09] MEDS: CITALOPRAM HYDROBROMIDE 20 MG TABLET 40 MG PO (08:30)
[2024-02-09] MEDS: DOXYCYCLINE HYCLATE 100 MG TABLET PO (08:30)
[2024-02-09 09:13] VITALS: PULSE 85; RESP 18; O2SAT 98
[2024-02-09] MEDS: FLUTICASONE/SALMETEROL 230-21 MCG INHALER 1 PUFF 2 PUFF INHALATION (09:13)
[2024-02-09] MEDS: ALBUTEROL SULFATE (*SP) AEROSOL 1 PUFF 2 PUFF INHALATION (09:13)
[2024-02-09 11:29] LABS: Glucose Point of Care 117 mg/dl (65-105)
--- NOTE | 2024-02-09 12:17 | PM.DS ---
DS: Admitting Diagnosis Discharge Date 02/09/24 Admitting Diagnosis Sent from prison because they do not have the patient's antibiotics DS: Discharge Diagnosis Discharge Diagnosis (1) Decubitus ulcer: Qualifiers: Laterality: unspecified laterality Pressure injury location: buttock Pressure injury stage: stage 2 Qualified Code(s): L89.302 - Pressure ulcer of unspecified buttock, stage 2 Code(s): L89.90 - Pressure ulcer of unspecified site, unspecified stage Status: Acute (2) History of heroin abuse: Code(s): F11.11 - Opioid abuse, in remission Status: Acute (3) COPD (chronic obstructive pulmonary disease): Qualifiers: COPD type: unspecified COPD Qualified Code(s): J44.9 - Chronic obstructive pulmonary disease, unspecified Code(s): J44.9 - Chronic obstructive pulmonary disease, unspecified Status: Acute (4) Seizure disorder: Code(s): G40.909 - Epilepsy, unspecified, not intractable, without status epilepticus Status: Acute (5) Chronic anticoagulation: Code(s): Z79.01 - intermediate (current) use of anticoagulants Status: Acute (6) Chronic indwelling Yi catheter: Code(s): Z97.8 - Presence of other specified devices Status: Acute DS: Summary Hospital Course Reason for hospitalization: 53yo female with hx of heroin abuse, 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 Hospital Course: Patient was brought in due to prison being unable to obtain the patient's prescribed IV antibiotic therapy. Patient is supposed to complete a 7 day course of IV antibiotics and then be on doxycycline indefinitely. For whatever reason prison did not verify that they could obtain the patient's antibiotics on arrival to the facility and even though prescription had been provided for the patient's methadone the prison was unable to obtain the methadone either. Subsequently patient was sent to the ED and was admitted. Infectious disease pharmacist was consulted as to recommendations for antibiotic therapy. ER was able to obtain the records from [facility] and infectious disease pharmacist recommends patient be on Azactam, tigecycline and ceftazidime/avibactam which were started. Care coordination was consulted to help facilitate coordination of antibiotics with prison. Patient does have COPD but is not in acute exacerbation. Patient has a hx of seizures as well and no issues arose. Patient does have a history of essential hypertension but blood pressures was well controlled. We continued her home medications as appropriate. Care coordination has arranged with the prison to have the IV antibiotics at the facility. Methadone has been acquired as well. Patient remained clinically stable. Labs stable. BUN was up to 49 for unclear reasons. Hgb normal. She was able to be discharged to the longterm in stable condition on 02/09/24. Status at Discharge Cognitive/behavioral status at discharge: stable Time Spent with Patient Time attestation: Total time spent providing and/or coordinating discharge services: 35 minutes Time spent: Greater than 30 minutes Exam Narrative: AF 97.5 127/77 85 18 98% 1L Gen - NARD lying semi-recumbent in bed Chest - scattered rhonchi, nml RR CV - RRR S1/S2 Abd - Soft, ND, +BS - Yi secured draining clear yellow urine Ext - No pedal edema Neuro - Alert and appropriate. Paraplegia Psych - Nml mood and affect Skin - Warm and dry. chronic venous stasis skin changed bilateral LE DS: Data Data Completed and Pending Labs on day of discharge: Labs from last 24 hours 02/09/24 02/09/24 02/09/24 11:11 07:23 04:09 WBC 8.0 RBC 5.10 Hgb 12.1 Hct 39.9 MCV 78.2 L MCH 23.7 L MCHC 30.3 L RDW 19.3 H Plt Count 305 MPV 10.1 Immature Gran % (Auto) 0.2 Neut % (Auto) 59.6 Lymph % (Auto) 30.3 [place] % (Auto) 7.0 Eos % (Auto) 1.5 Baso % (Auto) 1.4 H Lymph # (Auto) 2.43 [place] # (Auto) 0.6 Eos # (Auto) 0.1 Baso # (Auto) 0.1 Abs Immat Gran (auto) 0.02 Absolute Neuts (auto) 4.8 Absolute Nucleated RBC 0.000 Nucleated RBC % 0.0 Sodium 134 L Potassium 4.2 Chloride 97 L Carbon Dioxide 30 Anion Gap 7 BUN 49 H D Creatinine 0.70 Estim Creat Clear Calc 78 Estimated GFR > 60 Glucose 93 POC Capillary Glucose 117 H 84 Calcium 8.5 Phosphorus 4.4 Magnesium 2.1 Total Bilirubin 0.3 AST 23 ALT 10 Alkaline Phosphatase 145 H Total Protein 7.0 Albumin 3.0 L 02/08/24 02/08/24 19:55 16:45 WBC RBC Hgb Hct MCV MCH MCHC RDW Plt Count MPV Immature Gran % (Auto) Neut % (Auto) Lymph % (Auto) [place]ois % (Auto) Eos % (Auto) Baso % (Auto) Lymph # (Auto) [place]ois # (Auto) Eos # (Auto) Baso # (Auto) Abs Immat Gran (auto) Absolute Neuts (auto) Absolute Nucleated RBC Nucleated RBC % Sodium Potassium Chloride Carbon Dioxide Anion Gap BUN Creatinine Estim Creat Clear Calc Estimated GFR Glucose POC Capillary Glucose 114 H 76 Calcium Phosphorus Magnesium Total Bilirubin AST ALT Alkaline Phosphatase Total Protein Albumin Discharge Plan Discharge Attending physician on discharge: Octavio Mahoney Discharging Clinician: Octavio Mahoney Anticipated Discharge Date/Time: 02/09/24 12:33 [facility] Activity: as tolerated Diet: diabetic Discharge Instructions: Please check glucose before meals and before bed. Record for the doctor's review. Check blood pressure 1 to 2 times a day. Record for the doctor's review. Oxygen at 1Liter/min. Wean to keep SpO2 >92% Routine Yi care. Change out every 4 weeks. Take precautions to avoid falls. Routine PICC line care. Remove PICC line once IV antibiotics are done and okay with provider Continue antibiotics as: -- Eravacycline 78mg IV Q12 hours through 02/12 (last dose on the evening of 02/12) -- Cefiderocol 2gm IV Q8 hours through 02/12 (last dose on the evening of 02/12) -- Doxycycline 100mg oral daily to start on 02/14/24 Contact the doctor if the patient has fevers or other worrisome symptoms. Avoid NSAIDs (ibuprofen, naproxen, Aleve). Tylenol is safe to take. Follow-up with the provider at the facility. Thank you for using [facility] for your health care needs. Patient Instructions: Antibiotic Form, How to Stop Smoking (DC) Stand Alone Forms: General Discharge Information Follow-up/Referrals: PHYSICIAN NOT ON STAFF,NONSTAFF [Primary Care Provider] - Call for Appointment Discharge Medications: New cefiderocol 1 gram recon soln 2 g IV Q8H Rx Instructions: administer over 3 hrs Continued furosemide 40 mg tablet 40 mg PO DAILY atorvastatin 40 mg tablet 40 mg PO QHS methocarbamol 500 mg tablet 500 mg PO QID acetaminophen 325 mg Tablet 650 mg PO DAILY citalopram 40 mg tablet 40 mg PO DAILY methadone 40 mg Tablet,Soluble 100 mg PO DAILY amlodipine 10 mg tablet 10 mg PO DAILY ferrous sulfate [FeroSul] 325 mg (65 mg iron) tablet 324 mg PO DAILY albuterol sulfate 90 mcg/actuation HFA aerosol inhaler 2 puff INHALATION Q6H cyclobenzaprine 5 mg tablet 5 mg PO BID PRN (Reason: Muscle Spasm) levetiracetam 1,000 mg tablet 1,000 mg PO BID fluticasone propion-salmeterol [Advair HFA] 230-21 mcg/actuation HFA aerosol inhaler 2 puff INHALATION BID Eliquis 5 mg tablet 5 mg PO BID Held doxycycline hyclate 100 mg tablet 100 mg PO DAILY Hold Instructions: Resume on 02/14/24. HOLD - Resume on 02/14/24 Other Ambulatory Orders: Complete Blood Count with Diff (Routine) Timeframe: 20240212 Location: Determined by Patient Ordered By: Octavio Mahoney Comprehensive Metabolic Panel (Routine) Timeframe: 20240212 Location: Determined by Patient Ordered By: Octavio Mahoney Date of admission: 02/07/24 17:05 Primary Care Provider: PHYSICIAN NOT ON STAFF,NONSTAFF Admitting Provider: Octavio Mahoney Attending physician on admission: Octavio Mahoney Condition: Stable Hospitalist MIPS Heart Failure (Exclusion) Patient has history of Heart Transplant or Left Ventricular Assistive Device?: No IF YES, STOP HERE Heart Failure (Qualifier) Patient has current or prior documentation of LVEF less than or equal to 40%, or mod/servere depressed LVSF?: No IF NO, STOP HERE
[2024-02-09 12:43] VITALS: BMI 31.4
--- NOTE | 2024-02-09 12:52 | PC.NURSE ---
Attempted to call report to [facility] @ [id number]. No answer. EMS is on their way to [facility] patient, will attempt to call again
== END 2024-02-09 13:34 ==
LOC: ANHED 15:08 → ANH3MEDSUR 17:48
PROVIDERS: Admitting Provider Internal Medicine; Emergency Provider Physician Assistant; Visit Provider Internal Medicine
DX: L89.312 Pressure ulcer of right buttock, stage 2 (principal); J44.9 Chronic obstructive pulmonary disease, unspecified; E78.5 Hyperlipidemia, unspecified; I10 Essential (primary) hypertension; G40.909 Epilepsy, unspecified, not intractable, without status epilepticus; G82.20 Paraplegia, unspecified; F11.20 Opioid dependence, uncomplicated; M46.28 Osteomyelitis of vertebra, sacral and sacrococcygeal region; N31.9 Neuromuscular dysfunction of bladder, unspecified; Z86.711 Personal history of pulmonary embolism; Z96.0 Presence of urogenital implants; J96.11 Chronic respiratory failure with hypoxia; Z99.81 Dependence on supplemental oxygen; E11.42 Type 2 diabetes mellitus with diabetic polyneuropathy; D50.9 Iron deficiency anemia, unspecified; G47.33 Obstructive sleep apnea (adult) (pediatric); I87.8 Other specified disorders of veins; E66.9 Obesity, unspecified; Z68.31 Body mass index [BMI] 31.0-31.9, adult; F17.210 Nicotine dependence, cigarettes, uncomplicated; Z79.01 Long term (current) use of anticoagulants; Z79.51 Long term (current) use of inhaled steroids
CPT/HCPCS: 36415; 71045; 80053; 82948; 83735; 84100; 85025; 94640; 96365; 96366; 96367; 96375; 99285; A9270; G0378; J0457; J0714; J3243; J7060